=== PATIENT | male | born 1960 | race Two or more races ===

== ENCOUNTER 2018-10-27 03:14 | Emergency (ER) | END 2018-10-27 04:12 | disposition home or self-care (01) | DX: J02.8 Acute pharyngitis due to other specified organisms (principal); J31.0 Chronic rhinitis; I10 Essential (primary) hypertension; E07.9 Disorder of thyroid, unspecified ==

== ENCOUNTER 2021-12-03 21:13 | Emergency (ER) | payer BC ==
[~2021-12-03] VITALS: Ht 165.1 cm; Wt 86.2 kg
[~2021-12-03 21:13] MED LIST: LEVO500T2 PO; LEVO50TA PO; OLME1TAB22 PO
--- NOTE | 2021-12-03 22:19 | NUR ---
Patient reports epigastric burning x 3 days was scheduled for [facility] but family member tested positive for Covid , exam rescheduled. Patient states home test today for himself COVID negative. Patient also states that he is sad about his adult son OD 3 years ago was treated at this ER. EKG to MD STREETER
[2021-12-03] MEDS ORDERED: ASPIRIN 81 MG TAB.CHEW PO ONE (22:45)
[2021-12-03] MEDS ORDERED: NITROGLYCERIN 0.4 MG/TAB BOTTLE SL ONE ×2 (22:45→22:58)
[2021-12-03] MEDS ORDERED: ASPIRIN 81 MG TAB.CHEW ONE (22:58)
[2021-12-03 23:05] LABS: HEMATOCRIT 41.4 % (36.7-47.1); MEAN CORPUSCULAR VOLUME 88.8 fL (73.0-96.2); PLATELET COUNT (AUTO) 153 K/uL (152-348)
[2021-12-03 23:13] VITALS: BP 118/93
[2021-12-03 23:17] LABS: CREATININE 1.2 mg/dL (0.6-1.3); POTASSIUM 3.7 mmol/L (3.5-5.1)
--- NOTE | 2021-12-03 23:19 | NUR ---
Medicated as directed. Reports" better" /10 HOB up comfort x 1. CB in reach.
--- NOTE | 2021-12-04 00:36 | NUR ---
BRP x1 tolerated well, normal void per patient. Patient mother bedside. ED MD bedside.
--- NOTE | 2021-12-04 01:21 | NUR ---
Dr Martinez bedside with patient x 2. Patient request to leave [facility] medical advice .
--- NOTE | 2021-12-04 01:38 | NUR ---
Patient signed AMA,reviewed after visit summary written instructions,patient able to verbalize instruction. Patient #[id number] RAC DC'ed cath intact1 x dry dressing
== END 2021-12-04 01:30 | disposition home or self-care (01) ==
LOC: ER 21:14
DX: R07.9 Chest pain, unspecified (principal); I45.10 Unspecified right bundle-branch block; R94.31 Abnormal electrocardiogram [ECG] [EKG]; I11.9 Hypertensive heart disease without heart failure; E07.9 Disorder of thyroid, unspecified; Z79.890 Hormone replacement therapy
CPT/HCPCS: 36415; 70030-TC; 71045; 83735; 85025; 85730; 93005; A4663

== ENCOUNTER 2022-01-15 23:26 | Emergency (ER) | payer BC ==
[~2022-01-15] VITALS: Ht 165.1 cm; Wt 86.2 kg
--- NOTE | 2022-01-16 00:03 | NUR ---
pt c/o nausea dry heaves after sushi.
[2022-01-16 00:23] LABS: HEMATOCRIT 39.6 % (36.7-47.1); MEAN CORPUSCULAR HEMOGLOBIN 30.7 uug (23.8-33.4); PLATELET COUNT (AUTO) 149 K/uL (152-348)
[2022-01-16 00:28] LABS: CARBON DIOXIDE 25 mmol/L (21-32); CHLORIDE 98 mmol/L (98-107); CREATININE 1.8 mg/dL (0.6-1.3); GLUCOSE 111 mg/dL (74-106); UREA NITROGEN, BLOOD 28 mg/dL (7-18)
[2022-01-16 00:37] LABS: ALANINE AMINOTRANSFERASE 22 U/L (16-63); ALKALINE PHOSPHATASE 62 U/L (50-136); ASPARTATE AMINOTRANSFERASE 14 U/L (15-37); BILIRUBIN,DIRECT 0.2 mg/dL (0.0-0.2); BILIRUBIN,TOTAL 0.8 mg/dL (0.2-1.0); LIPASE 257 U/L (73-393); TOTAL PROTEIN, SERUM 7.4 g/dL (6.4-8.2)
[2022-01-16] MEDS ORDERED: ONDANSETRON 4 MG/2 ML VIAL IV ONE (00:45)
[2022-01-16] MEDS ORDERED: GLUCAGON,HUMAN RECOMBINANT 1 MG VIAL IVP ONE (00:45)
[2022-01-16 01:03] LABS: *BILIRUBIN,URIN NEGATIVE (NEGATIVE); *BLOOD, URINE NEGATIVE (NEGATIVE); *CLARITY,URINE CLEAR (CLEAR); *COLOR,URINE YELLOW (YELLOW); *KETONES,URINE NEGATIVE (NEGATIVE); *UROBILINOGEN,URINE 0.2 E.U./dl (NORMAL); LEUKOCYTE ESTERASE ,URINE NEGATIVE (NEGATIVE); NITRITE, URINE NEGATIVE (NEGATIVE); UGLUCOSE NEGATIVE (NEGATIVE)
[2022-01-16] MEDS ORDERED: MAG HYDROX/AL HYDROX/SIMETH 30 ML LIQUID UDC PO ONE (03:15)
[2022-01-16] MEDS ORDERED: LIDOCAINE VISCUS 2% 15 ML UDC MM ONE (03:15)
[2022-01-16] MEDS ORDERED: PANTOPRAZOLE SODIUM IV 40 MG in IV DEXTROSE 5% 100 ML IV ONE (03:15)
[2022-01-16] MEDS ORDERED: DICYCLOMINE HCL LIQ 10 MG/5 ML UDC PO ONE (03:15)
[2022-01-16] MEDS ORDERED: LIDOCAINE VISCUS 2% 15 ML UDC ONE (03:39)
[2022-01-16] MEDS ORDERED: MAG HYDROX/AL HYDROX/SIMETH 30 ML LIQUID UDC ONE (03:39)
[2022-01-16] MEDS ORDERED: DICYCLOMINE HCL LIQ 10 MG/5 ML UDC ONE ×2 (03:40)
[2022-01-16] MEDS ORDERED: PANTOPRAZOLE SODIUM 40 MG VIAL ONE (03:41)
[2022-01-16] MEDS ORDERED: FAMO-132 PO (04:55)
[2022-01-16 05:04] VITALS: BP 120/70
--- NOTE | 2022-01-16 05:04 | NUR ---
Patient discharged to home in stable condition. Written and verbal after care instructions given. Patient verbalizes understanding of instructions. Stressed follow up or return to ER for worsening s/s.
== END 2022-01-16 05:05 | disposition home or self-care (01) ==
LOC: ER 23:31
DX: R07.9 Chest pain, unspecified (principal); N17.9 Acute kidney failure, unspecified; D69.6 Thrombocytopenia, unspecified; I45.10 Unspecified right bundle-branch block; I11.9 Hypertensive heart disease without heart failure; E07.9 Disorder of thyroid, unspecified; Z79.890 Hormone replacement therapy; Z79.899 Other long term (current) drug therapy
CPT/HCPCS: 36415; 71045; 80048; 80076; 81003; 83690; 84484 ×2; 85025; 93005 ×2; 96374; 96375; 99285; C9113; J1610; J2405; A4663; J7030

== ENCOUNTER 2023-04-16 02:19 | Emergency (ER) | payer BC ==
[~2023-04-16 02:19] MED LIST changes: +FAMO-132 PO
--- NOTE | 2023-04-16 02:36 | NUR ---
Pt not in waiting room, per freight clerk, pt stated he will just go to his md in morning.
== END 2023-04-16 02:49 | disposition left against medical advice (07) ==
LOC: ER 02:40
DX: Z53.21 Procedure and treatment not carried out due to patient leaving prior to being seen by health care provider (principal)

== ENCOUNTER 2023-10-07 02:59 | Emergency (ER) | payer BC ==
[~2023-10-07] VITALS: Ht 157.5 cm; Wt 87.1 kg
[2023-10-07] MEDS ORDERED: IPRA42SP NS (03:48)
[2023-10-07 03:56] VITALS: BP 127/81; TEMP 209.3; O2SAT 94
== END 2023-10-07 03:58 | disposition home or self-care (01) ==
LOC: ER 03:01
DX: R09.82 Postnasal drip (principal); R05.9 Cough, unspecified; J31.0 Chronic rhinitis; E03.9 Hypothyroidism, unspecified; Z79.2 Long term (current) use of antibiotics; Z79.899 Other long term (current) drug therapy
CPT/HCPCS: A4606; A4663